=== PATIENT | female | born 1950 | race Caucasian/White ===

== ENCOUNTER 2016-10-26 11:35 | Inpatient (IN) ==
[2016-10-26] MEDS ORDERED: SODIUM CHLORIDE 0.9% 2,050 ML IV ONE (11:58)
[2016-10-26 12:04] LABS: Basophils # 0.1 10*3/uL (0.0-0.2); Basophils % 0.4 % (0.0-0.8); Eosinophils # 0.1 10*3/uL (0.0-0.87); Eosinophils % 0.9 % (0.00-10.9); Hematocrit 32.6 VOL% (35.7-47.0); Hemoglobin 11.6 GM/DL (12.0-16.0); Immature Granulocytes % 0.4 %; Immature Granulocytes Absolute 0.04 #; Lymphocytes # 2.1 10*3/uL (1.4-4.0); Lymphocytes % 18.7 % (21.3-54.2); Mean Corpuscular HGB Conc 35.6 GM/DL (32-36); Mean Corpuscular Hemoglobin 34 PG (27-34); Mean Corpuscular Volume 95.6 FL (87-102); Mean Platelet Volume 8.8 FL (9.6-12.0); Monocytes # 0.4 10*3/uL (0.11-0.8); Monocytes % 3.9 % (1.7-12.7); Neutrophils # 8.6 10*3/uL (1.4-7.4); Neutrophils % 75.7 % (38.7-73.9); Platelet Count 340 T/CUMM (130-400); Red Blood Count 3.41 MC/CUMM (3.8-5.5); Red Cell Distribution Width 12.1 % (9.3-17.3); White Blood Count 11.3 T/CUMM (4-12)
[2016-10-26 12:08] LABS: Apearance,Urine CLOUDY (Clear); Bacteria,Urine Many /HPF (Few); Bilirubin,Urine Small mg/dL (Negative); Blood, Urine Moderate mg/dL (Negative); Glucose,Urine (UA) Negative (Negative); Ketones,Urine 5 mg/dL (Negative); Nitrite,Urine Negative (Negative); Protein,Urine >=500 MG/DL; RBC,Urine 74 /HPF (0-4); Urine Specific Gravity 1.011 (1.001-1.035); Urine Urobilinogen < 2.0 EU/DL (0.2-1.0); WBC,Urine 204 /HPF (0-6)
[2016-10-26 12:09] LABS: Urine Color Dark yellow (Yellow)
[2016-10-26 12:27] LABS: Albumin 3.6 G/DL (3.4-5.0); Bilirubin,Total 0.7 MG/DL (0.2-1.0); Calcium 8.9 MG/DL (8.5-10.1); Osmolality,Calculated 296.4 MOS/KG (273-304); Potassium 3.4 MMOL/L (3.5-5.1); Total Protein 6.6 G/DL (6.4-8.3)
[2016-10-26] MEDS ORDERED: LEVOFLOXACIN INJ 100 ML IV ONE (12:31)
[2016-10-26 12:34] LABS: Lactic Acid 3.2 MMOL/L (0.4-2.0)
[2016-10-26] MEDS: LEVOFLOXACIN INJ 500 MG in PREMIX 1 EACH IV SCH (12:43)
[2016-10-26] MEDS ORDERED: ZALEPLON 5 MG CAPSULE PO PRN (13:43)
[2016-10-26] MEDS ORDERED: ONDANSETRON 4 MG/2 ML VIAL IV PRN (13:43)
[2016-10-26] MEDS ORDERED: ACETAMINOPHEN 325 MG TABLET PO PRN (13:43)
[2016-10-26] MEDS ORDERED: LACTULOSE 20 GM/30 ML UDCUP PO PRN (13:43)
[2016-10-26] MEDS ORDERED: DOCUSATE SODIUM 100 MG CAPSULE PO PRN (13:43)
--- NOTE | 2016-10-26 13:53 | Emergency Department Note ---
Maikol Goldberg Hilary, am scribing for, and in the presence of, Kalin Olsen MD 11:57. Raúl Goldberg Phillip K, MD, personally performed the services described in this documentation, ascribed by Elsa Lassiter in my presence, and it is both accurate and complete [id number] . Arrival - Arrival Chief Complaint: Altered Mental Status ED Nursing Triage Note: Brought in by EMS-sent from [facility] for further evaluation of confusion, weakness, and dehydration-unsure of onset. Patient was recently dx with a UTI, but was not put on antibiotics. Mode of Arrival: Stretcher Limitations: Altered Mental Status Source: Patient, RN Notes Reviewed - History of Present Illness HPI Narrative: Pt is a 66 y/o female brought into the ED via EMS from [facility] for further evaluation of confusion, weakness and dehydration. Patient was recently dx with a UTI, but was not put on antibiotics found today hypotensive and decreased mental status. Onset (ago): unknown Date of Last Menstrual Period: lennie Allergies/Adverse Reactions: Allergies Allergy/AdvReac Type Severity Reaction Status Date / Time cephalexin Allergy Unknown/Unable Verified 10/26/16 11:48 to obtain codeine Allergy Unknown/Unable Verified 10/26/16 11:48 to obtain Penicillins Allergy Unknown/Unable Verified 10/26/16 11:48 to obtain Review of System - Review of System ROS unobtainable: due to mental status 12 point system: reviewed and no additional remarkable complaints except as stated Medical,Surgical,& Family Hx - Medical History Cardio: History of: Hypertension Neurology: History of: Cerebrovascular Accident, Dementia Respiratory: History of: Respiratory Problems ("non-active TB") - Social History Smoking Status: Unknown if ever smoked Frequency of Alcohol Use: Unknown Type of Drug Use: Unknown Exam Vital Signs: Vital Signs Temperature 98.3 F 10/26/16 11:43 Pulse Rate 114 H 10/26/16 11:43 Respiratory Rate 18 10/26/16 12:00 Blood Pressure 71/35 10/26/16 11:43 O2 Sat by Pulse Oximetry 97 10/26/16 11:43 - General General appearance: alert, in no apparent distress - Head Head exam: Present: atraumatic, normocephalic - Eye Eye exam: Present: normal appearance, PERRL, EOMI - ENT ENT exam: Present: mucous membranes dry, TM's normal bilaterally - Neck Neck exam: Present: full ROM, trachea midline. Absent: tenderness - Chest Chest inspection: Present: symmetric chest wall rise. Absent: tenderness - Respiratory Respiratory exam: Present: normal lung sounds bilaterally. Absent: respiratory distress - Cardiovascular Cardiovascular exam: Present: regular rate, normal rhythm, normal heart sounds. Absent: murmur, rubs, gallop - Abdominal Exam Abdominal exam: Present: soft, normal bowel sounds. Absent: distention, tenderness - Extremities Exam Extremities exam: Present: full ROM. Absent: tenderness - Back Exam Back exam: Present: full ROM. Absent: tenderness - Neurological Exam Neurological exam: Present: alert, oriented X3, CN II-XII intact. Absent: motor sensory deficit - Psychiatric Psychiatric exam: Present: normal affect, normal mood - Skin Skin exam: Present: warm, dry, intact, normal color. Absent: rash Course Course Narrative: Patient discussed with the hospitalist. She was given 30 cc/kg of IV fluids with no improvement in her blood pressure. Hospitalist has seen the patient in the ED and hopefully will start some pressors. Results - Labs CBC & BMP: 10/26/16 11:47 10/26/16 11:47 Lab Results: I have reviewed the patients labs Labs: Laboratory Tests 10/26/16 10/26/16 11:47 11:47 WBC 11.3 RBC 3.41 L Hgb 11.6 L Hct 32.6 L MPV 8.8 L Neut % (Auto) 75.7 H Lymph % (Auto) 18.7 L Neut # (Auto) 8.6 H Urine Color Dark yellow Urine Appearance Cloudy Urine Bilirubin Small H Urine Urobilinogen < 2.0 H Urine Leukocytes Large H Laboratory Tests 10/26/16 11:47 Sodium 133 L Potassium 3.4 L Chloride 87 L Carbon Dioxide 33 H Anion Gap 16.4 H BUN 91 H Creatinine 2.20 H BUN/Creatinine Ratio 41.00 H Glucose 152 H Lactic Acid 3.2 H AST 40 H - EKG EKG results: interpreted by THIERRY, WNL, sinus rhythm - Diagnostic Findings Procedure: Chest x-ray: report reviewed by me (No infiltrate) Disposition Clinical Impression: Urosepsis, Sepsis, Urinary tract infection, Altered mental status Case discussed with: patient Disposition: Still a Patient Condition: Critical Additional Instructions: Admit to the hospitalist
[2016-10-26] MEDS ORDERED: SODIUM CHLORIDE 0.9% 1,000 ML IV SCH (14:00)
[2016-10-26 14:07] LABS: INR 1.1; PT Patient Result 11.2 SECS
--- NOTE | 2016-10-26 14:08 | XRay Report ---
Portable chest Date: 10/26/2016 Clinical history: Alteration conscious Comparison: None Technique: Portable AP sitting chest Findings: The heart is normal in size. Calcified granulomata/nodes with chronic scarring. Minimal atelectasis with accentuation of the pulmonary interstitium. Osteopenia with degenerative changes. Impression: Old healed granulomatous disease. Minimal atelectasis with findings which could be related to mild pneumonitis/edema/fibrosis. PROCEDURE INTERPRETED AT [facility] DEPARTMENT OF RADIOLOGY Final Report Signed by: Dr. Janene Sorto
--- NOTE | 2016-10-26 14:08 | EKG Report ---
Stationary ECG Study [facility] ER Test Date: 10/26/2016 1:26:35 PM Pat Name: NGUYEN THORNTON Department: Room: Gender: F [employer]: : 1950 Requested by: Kalin Glover Order Number: [id number] Reading MD: NISHA BYRD Intervals Inez Rate: 90 P: 64 OH: 171 QRS: -21 QRSD: 82 T: 51 QT: 383 QTc: 430 Interpretive Statements SINUS RHYTHM BORDERLINE LEFT AXIS DEVIATION LOW QRS VOLTAGE Electronically Signed On 10-29-16 15:25:36 CDT by NISHA BYRD [email or web address]
--- NOTE | 2016-10-26 14:13 | Hospitalist History & Physical ---
<Carson Stacy - Last Filed: 10/26/16 14:24> Assessment and Plan (1) Sepsis Status: Acute Assessment and plan: White count high normal at 11.3. Patient is hypotensive with a BP 71/35 on admission. Patient given a bolus of 2050 mL's normal saline. Patient started on Levaquin in the ED. Will continue Levaquin in the CCU. Sepsis workup has been ordered. Current Visit: Yes (2) Urinary tract infection Status: Acute Assessment and plan: Urinalysis reveals proteinuria and large leukocytes. Patient started on Levaquin and ED. Will continue in CCU. Current Visit: Yes (3) Altered mental status Status: Acute Assessment and plan: Patient has a decreased level consciousness and marked confusion. Onset unknown. Patient had a remote history of CVA which could be related. Current Visit: Yes (4) Remote history of stroke Status: Acute Current Visit: Yes History of Present Illness Chief complaint: UTI, confusion, weakness History of present illness: Ms. Pichardo is a 66 year old female detention resident who was transferred to [facility] ED via EMS for further evaluation of confusion, weakness and UTI. According to detention records, the patient was recently diagnosed with UTI but not started on antibiotics. She was also hypotensive at the detention with systolic pressure of 98. On arrival in the ED, the patient was found to be hypotensive with blood pressure 71/35. Patient was awake yet her communication was unintelligible mumbling. Unable to obtain a sufficient history from the patient due to decreased mental status. Chest x-ray showed minimal atelectasis with findings which could be related to mild pneumonitis or edema. Lab work revealed WBC 11.3 hemoglobin 11.6 hematocrit 32.6 sodium 133 potassium 3.4 BUN 91 creatinine 2.20 glucose 152. Urinalysis shows proteinuria greater than 500 mg/dL with large leukocytes. Blood culture and urine culture pending. Case been discussed with Dr. Olsen and Dr. Zuniga. Patient will be admitted through the hospital medicine service to the CCU for further monitoring and treatment. Patient is a full code. Home Medications Medication Instructions Recorded Confirmed Type ARIPiprazole [Aripiprazole] 20 mg PO 0900 10/26/16 10/26/16 History Escitalopram Oxalate 10 mg PO 0900 10/26/16 10/26/16 History Ibuprofen [Ibuprofen] 800 mg PO Q8H PRN 10/26/16 10/26/16 History Lisinopril/Hctz 20-12.5 [Prinzide 1 tablet PO 0900 10/26/16 10/26/16 History 20-12.5] Magnesium Hydroxide [Milk of 30 ml PO Q4H PRN 10/26/16 10/26/16 History Magnesia] Magnesium Oxide 500 mg PO BID@0900,1700 10/26/16 10/26/16 History Menthol/Zinc Oxide Oint 1 applic TOP QID PRN 10/26/16 10/26/16 History [Calmoseptine Oint] Methocarbamol Tab [Robaxin Tab] 500 mg PO TID 10/26/16 10/26/16 History Multivitamin (Centrum) [Centrum 1 tablet PO 0900 10/26/16 10/26/16 History Tab] Oxybutynin Xl [Ditropan Xl] 5 mg PO BID@0900,1700 10/26/16 10/26/16 History QUEtiapine [SEROquel] 25 mg PO 0900 10/26/16 10/26/16 History QUEtiapine [SEROquel] 100 mg PO BEDTIME 10/26/16 10/26/16 History clonazePAM [Clonazepam] 0.5 mg PO BID PRN 10/26/16 10/26/16 History dimenhyDRINATE [Dramamine Chew Tab] 50 mg PO Q4H PRN 10/26/16 10/26/16 History rifAMPin [Rifampin] 600 mg PO 0900 10/26/16 10/26/16 History Allergies Allergy/AdvReac Type Severity Reaction Status Date / Time cephalexin Allergy Unknown/Unable Verified 10/26/16 11:48 to obtain codeine Allergy Unknown/Unable Verified 10/26/16 11:48 to obtain Penicillins Allergy Unknown/Unable Verified 10/26/16 11:48 to obtain Medical,Surgical,& Family Hx - Medical History Cardio: History of: Hypertension Neurology: History of: Cerebrovascular Accident, Dementia Respiratory: History of: Respiratory Problems ("non-active TB") - Family History Family History: Reports;: Family Hypertension - Social History Smoking Status: Unknown if ever smoked Frequency of Alcohol Use: Unknown Type of Drug Use: Unknown Marital Status: Single Lives With:: [facility] Functional capacity: bed bound ROS unobtainable: due to mental status Exam - Constitutional Vitals: Period Temp Pulse Resp BP Sys/Santos Pulse Ox Last 24 Hr 98.3 F-98.3 F 114-114 16-18 71-71/35-35 97 General appearance: normal weight, disheveled - Head Head exam: Present: normal inspection, normocephalic, atraumatic. Absent: abrasion, laceration - Eye Eye exam: Present: EOMI. Absent: nystagmus, scleral icterus Pupils: Present: NICCI. Absent: fixed - ENT ENT exam: Present: normal exam, normal external ear exam - Neck Neck exam: Present: normal inspection. Absent: lymphadenopathy, tenderness, thyromegaly - Respiratory Respiratory exam: Present: decreased breath sounds, rales. Absent: chest wall tenderness, wheezes - Cardiovascular Cardiovascular exam: Present: tachycardia. Absent: carotid bruit, gallop - GI/Abdominal GI/Abdominal exam: Present: normal bowel sounds, soft. Absent: hernia, mass, tenderness - Extremities Exam Extremities exam: Present: normal inspection, normal capillary refill, full ROM. Absent: edema - Neurological Exam Neurological exam: Present: altered - Skin Skin exam: Present: normal color, warm, dry. Absent: cyanosis, erythema Results - Labs CBC & BMP: 10/26/16 11:47 10/26/16 11:47 Lab Results: I have reviewed the past 24 hour labs - EKG EKG results: interpreted by ERMD - Diagnostic Findings Procedure: Chest x-ray: image reviewed by me, report reviewed by me <Sarah Zuniga - Last Filed: 10/26/16 15:06> Assessment and Plan (1) Septic shock Status: Acute Assessment and plan: HL fluid, volume overload, levaquin, blood cx Current Visit: Yes (2) Urinary tract infection Status: Acute Assessment and plan: levaquin IV Current Visit: Yes (3) Altered mental status Status: Acute Assessment and plan: ct of head when they can hold still Current Visit: Yes (4) Remote history of stroke Status: Acute Assessment and plan: not on asa and plavix Current Visit: Yes (5) Hypokalemia Status: Acute Assessment and plan: potassium replacement Current Visit: Yes (6) Acute on chronic renal failure Status: Acute Assessment and plan: renal us, HL fluids due to volume overload Current Visit: Yes History of Present Illness Chief complaint: ams History of present illness: Ms. Pichardo is a 66 year old female seen and examined. Patient grunting the entire times, with pelvic thrusting. Hypotension, but had diffuse crackles due to volume overload. will use levaphed Medical,Surgical,& Family Hx - Surgical History Additional Surgical History: unable to obtain due to ams - Social History Smoking Status: Former smoker Exam - Constitutional Vitals: Period Temp Pulse Resp BP Sys/Santos Pulse Ox Last 24 Hr 98.3 F-98.3 F 114-114 16-18 71-71/35-35 97 General appearance: mild distress - Psychiatric Psychiatric exam: Present: agitated, anxious Results - Labs CBC & BMP: 10/26/16 11:47 10/26/16 11:47 - EKG EKG shows: sinus rhythm (no st changes ) - Diagnostic Findings Procedure: Chest x-ray: report reviewed by me (pneumonia pul edema )
[2016-10-26 14:18] LABS: Alanine Aminotransferase 44 U/L (13-56); Albumin 3.5 G/DL (3.4-5.0); Alkaline Phosphatase 97 U/L (45-117); Amylase 89 U/L (25-115); Aspartate Amino Transferase 43 U/L (0-37); Bilirubin,Indirect 0.3 MG/DL (0.0-1.0); Calcium 8.9 MG/DL (8.5-10.1); Total Protein 6.7 G/DL (6.4-8.3); Troponin I Only < 0.015 NG/ML (0.00-0.045)
[2016-10-26 14:27] LABS: ABG Base Excess 4.7 MMOL/L (-2.5-2.5); ABG HCO3 28.6 MMOL/L (20-26); ABG Oxygen Saturation 95.7 % (95-100); ABG PCO2 35.4 MM HG (35-48); ABG PH 7.503 (7.35-7.45); ABG PO2 76.8 MM HG (80-95); ABG TCO2 25.2 MMOL/L (23-27); Allen Test Positive; Pt O2 Delivery Device Room Air
[2016-10-26] MEDS ORDERED: ALBUTEROL 2.5 MG/3 ML NEB RESP TX PRN (14:30)
[2016-10-26] MEDS ORDERED: NOREPINEPHRINE 4 MG/4 ML VIAL IV ONE (14:41)
[2016-10-26] MEDS: NOREPINEPHRINE 8 MG in SODIUM CHLORIDE 0.9% 242 ML IV SCH (15:00)
[2016-10-26] MEDS: SODIUM CHLORIDE 0.9% 1,000 ML IV SCH (15:03)
[2016-10-26] MEDS ORDERED: ENOXAPARIN 30 MG/0.3 ML SYRINGE SUBCUT SCH (16:00)
[2016-10-26] MEDS: ARIPiprazole 10 MG TABLET PO SCH (17:31)
[2016-10-26] MEDS: PANTOPRAZOLE 40 MG VIAL IV SCH (17:31)
[2016-10-26] MEDS: QUEtiapine 100 MG TABLET PO SCH (21:25)
[2016-10-27] MEDS: NOREPINEPHRINE 8 MG in SODIUM CHLORIDE 0.9% 242 ML IV SCH ×2 (00:38→15:12)
[2016-10-27 07:07] LABS: Basophils % 0.5 % (0.0-0.8); Eosinophils # 0.1 10*3/uL (0.0-0.87); Eosinophils % 0.7 % (0.00-10.9); Hematocrit 30.8 VOL% (35.7-47.0); Hemoglobin 11.1 GM/DL (12.0-16.0); Immature Granulocytes % 0.4 %; Immature Granulocytes Absolute 0.03 #; Lymphocytes # 1.7 10*3/uL (1.4-4.0); Lymphocytes % 23.3 % (21.3-54.2); Mean Corpuscular Hemoglobin 34 PG (27-34); Mean Corpuscular Volume 94.5 FL (87-102); Mean Platelet Volume 8.9 FL (9.6-12.0); Monocytes # 0.5 10*3/uL (0.11-0.8); NRBC # 0.07 10*3/uL; Neutrophils # 5.1 10*3/uL (1.4-7.4); Neutrophils % 68.1 % (38.7-73.9); Platelet Count 300 T/CUMM (130-400); Red Blood Count 3.26 MC/CUMM (3.8-5.5); Red Cell Distribution Width 12.1 % (9.3-17.3); White Blood Count 7.5 T/CUMM (4-12)
[2016-10-27 07:26] LABS: Calcium 8.3 MG/DL (8.5-10.1); Osmolality,Calculated 301.8 MOS/KG (273-304); Potassium 3.4 MMOL/L (3.5-5.1)
[2016-10-27] MEDS: ESCITALOPRAM 10 MG TABLET PO SCH (08:37)
[2016-10-27] MEDS: ARIPiprazole 10 MG TABLET PO SCH (08:37)
[2016-10-27] MEDS: QUEtiapine 25 MG TABLET PO SCH (08:39)
[2016-10-27] MEDS ORDERED: PANTOPRAZOLE 40 MG TABLET PO SCH (09:00)
[2016-10-27] MEDS: LEVOFLOXACIN INJ 500 MG in PREMIX 1 EACH IV SCH (11:55)
[2016-10-27] MEDS: SODIUM CHLORIDE 0.9% 1,000 ML IV SCH (15:12)
[2016-10-27] MEDS: DESITIN 4OZ/NYSTATIN 15 GRAM MIXTURE PASTE TOP SCH ×2 (15:39→21:20)
[2016-10-27] MEDS: PANTOPRAZOLE 40 MG VIAL IV SCH (15:41)
[2016-10-27] MEDS: ENOXAPARIN 40 MG/0.4 ML SYRINGE SUBCUT SCH (16:04)
--- NOTE | 2016-10-27 16:54 | Hospitalist Progress Note ---
Assessment and Plan (1) Septic shock Status: Acute Assessment and plan: Continue Levaquin, hypotension has resolved. Current Visit: Yes (2) Urinary tract infection Status: Acute Assessment and plan: levaquin IV, urine culture pending Current Visit: Yes (3) Altered mental status Status: Acute Assessment and plan: EEG was read by Dr. Ambrose as negative. Current Visit: Yes (4) Remote history of stroke Status: Acute Assessment and plan: not on asa and plavix Current Visit: Yes (5) Hypokalemia Status: Acute Assessment and plan: potassium replacement and recheck in a.m. Current Visit: Yes (6) Acute on chronic renal failure Status: Acute Assessment and plan: renal us, restart low dose of IVF Current Visit: Yes Hospitalist: Subjective Interval history: Patient was seen by speech and they recommended a pured diet. Patient was seen by Dr. Ambrose and the EEG does not show any seizure activity. Patient still making these unusual grunts and noises. Patient has some breakdown on her bottom and we have ordered but pays for that. Patient is not requiring pressors but I want to leave her in the ICU overnight. Exam - Constitutional Vitals: Period Temp Pulse Resp BP Sys/Santos Pulse Ox Last 24 Hr 97.9 F-99.2 F 66-104 10-28 86-129/45-73 92-99 Exam: Heart Rate-[tachycardic] Lungs-[CTAB] GI-[+bs soft, NT] Ext-[no edema] Neuro [Motor 5/5], [alert and oriented times 1] psych [normal mood and affect] General [mild acute distress] Results - Labs CBC & BMP: 10/27/16 06:43 10/27/16 06:43 Lab Results: I have reviewed the past 24 hour labs Labs: Stool for occult blood is negative 3. Urine culture pending, blood cultures negative no growth
--- NOTE | 2016-10-27 17:49 | CT Report ---
History: Altered mental status Date: 10/27/2016 Study: CT head without contrast Comparison exam: August 17, [address] sections were obtained through the head without IV contrast. This CT exam was performed using one or more the following dose reduction techniques: Automated exposure control, adjustment of the MA and/or KV according to patient size, or use of iterative reconstruction technique. The ventricles are midline in position without evidence of hydrocephalus. There is mild cerebral atrophy. There is a moderate amount of ill-defined low density in the periventricular and deep white matter without mass effect compatible with changes of small vessel disease as on the comparison study. There is chronic lacunar infarction in the head of left caudate nucleus and anterior limb left internal capsule. Chronic lacunar infarction is also noted in the right putamen. There is no mass or parenchymal hemorrhage. There is no gross CT evidence of acute cortical stroke. There is no acute extra-axial hematoma. There is no acute abnormality of the calvarium. There is moderate distal carotid artery calcic aeration bilaterally. Impression: Chronic ischemic changes. No definite acute intracranial process PROCEDURE INTERPRETED AT [facility] DEPARTMENT OF RADIOLOGY Final Report Signed by: Dr. Yun Montoya
--- NOTE | 2016-10-27 18:35 | Electroencephalogram ---
HISTORY: A 66-year-old female with a history of change in mental status. INTRODUCTION: A digital EEG was performed using the standard 10-20 system of electrode placement wit h one-channel of EKG monitoring. Photic stimulation is performed. DESCRIPTION OF RECORD: The background is very interruptedly disorganized consists of 6 to 7 hertz mo derate amplitude bilaterally symmetrical rhythm. Photic stimulation elicit a driving response slower flash frequencies. There are no focal, sharp wave, spike, or wave activity seen. Heart rate 84 beats per minute. IMPRESSION: ABNORMAL EEG DUE TO GENERALIZED SLOWING. CLINICAL CORRELATION: This record is supportive of [id number] encephalopathy, which could be secondary to postictal state, post hypoxic state, metabolic disorder, diffuse PATHOLOGY LABORATORY AIDE insult, or increas ed intracranial pressure. No epileptiform/seizure activity seen. Clinical correlation suggested.
[2016-10-27] MEDS: POTASSIUM CHLORIDE INJ 40 MEQ in SODIUM CHLORIDE 0.45% 1,000 ML IV SCH (20:51)
[2016-10-27] MEDS: QUEtiapine 100 MG TABLET PO SCH (21:18)
[2016-10-28 04:28] LABS: Basophils % 0.3 % (0.0-0.8); Eosinophils # 0.1 10*3/uL (0.0-0.87); Eosinophils % 0.8 % (0.00-10.9); Hemoglobin 9.7 GM/DL (12.0-16.0); Immature Granulocytes % 0.3 %; Immature Granulocytes Absolute 0.02 #; Lymphocytes # 1.6 10*3/uL (1.4-4.0); Lymphocytes % 27.5 % (21.3-54.2); Mean Corpuscular HGB Conc 34.6 GM/DL (32-36); Mean Corpuscular Hemoglobin 33 PG (27-34); Mean Corpuscular Volume 96.2 FL (87-102); Mean Platelet Volume 8.3 FL (9.6-12.0); Monocytes # 0.4 10*3/uL (0.11-0.8); Monocytes % 6.4 % (1.7-12.7); Neutrophils # 3.9 10*3/uL (1.4-7.4); Neutrophils % 64.7 % (38.7-73.9); Platelet Count 259 T/CUMM (130-400); Red Blood Count 2.91 MC/CUMM (3.8-5.5); Red Cell Distribution Width 12.1 % (9.3-17.3)
[2016-10-28] MEDS: POTASSIUM CHLORIDE INJ 40 MEQ in SODIUM CHLORIDE 0.45% 1,000 ML IV SCH ×3 (04:54→13:24)
[2016-10-28 04:55] LABS: Calcium 8.7 MG/DL (8.5-10.1); Osmolality,Calculated 299.6 MOS/KG (273-304); Potassium 3.3 MMOL/L (3.5-5.1)
[2016-10-28] MEDS: ESCITALOPRAM 10 MG TABLET PO SCH (09:26)
[2016-10-28] MEDS: ARIPiprazole 10 MG TABLET PO SCH (09:26)
[2016-10-28] MEDS: QUEtiapine 25 MG TABLET PO SCH ×2 (09:26→15:04)
[2016-10-28] MEDS: DESITIN 4OZ/NYSTATIN 15 GRAM MIXTURE PASTE TOP SCH ×2 (11:41→22:14)
[2016-10-28] MEDS: LEVOFLOXACIN INJ 500 MG in PREMIX 1 EACH IV SCH (13:25)
[2016-10-28] MEDS ORDERED: LORazepam 2 MG/1 ML VIAL IV PRN (13:52)
--- NOTE | 2016-10-28 13:54 | Hospitalist Progress Note ---
Assessment and Plan (1) Septic shock Status: Acute Assessment and plan: Blood cultures 2 negative no growth, urine culture growing gram-positive cocci , will stop Levaquin as it will not be sensitive. Start vancomycin IV Current Visit: Yes (2) Urinary tract infection Status: Acute Assessment and plan: Urine culture growing gram-positive cocci, will change vancomycin. Current Visit: Yes (3) Altered mental status Status: Acute Assessment and plan: EEG shows no evidence of seizure activity but severe encephalopathy, head CT nothing acute, Current Visit: Yes (4) Remote history of stroke Status: Acute Assessment and plan: asa 81 mg daily Current Visit: Yes (5) Hypokalemia Status: Acute Assessment and plan: potassium replacement and recheck in a.m. Current Visit: Yes (6) Acute on chronic renal failure Status: Acute Assessment and plan: renal us pending, cont ivf Current Visit: Yes Hospitalist: Subjective Interval history: Patient continues to make these grunting noises. She does not say anything to make sense to me. She is eating okay. Nursing reports that she can be rather vulgar. Son says she has been this way for approximately a month. Patient is hardly drink or eat anything for the last [address] a Keofed and start her on tube feedings per Exam - Constitutional Vitals: Period Temp Pulse Resp BP Sys/Santos Pulse Ox Last 24 Hr 97.5 F-98.1 F 88-102 11-20 108-152/59-94 95-100 Exam: Heart Rate-[tachycardic] Lungs-[CTAB] GI-[+bs soft, NT] Ext-[no edema] Neuro [Motor 5/5], [alert and oriented times 1] psych [agitated mood and affect] General no acute distress] Results - Labs CBC & BMP: 10/28/16 04:16 10/28/16 04:16 Lab Results: I have reviewed the past 24 hour labs Labs: Blood cultures 2 negative, urine culture growing gram-positive cocci. - Diagnostic Findings Procedure: CT: report reviewed by me (Head CT chronic ischemic changes nothing acute.), Ultrasound: report reviewed by me (Renal ultrasound done results pending), X-ray: report reviewed by me (EEG shows moderate to severe encephalopathy. No seizure activity)
[2016-10-28] MEDS ORDERED: risperiDONE 1 MG TABLET PO SCH (14:00)
[2016-10-28] MEDS ORDERED: OXYMETAZOLINE 0.05% NASAL SPRAY 15 ML BOTTLE BOTH NARES PRN (14:00)
[2016-10-28] MEDS ORDERED: GLUCAGON 1 MG VIAL IM PRN (14:13)
[2016-10-28] MEDS ORDERED: DEXTROSE 50% 25 GM/50 ML VIAL IV PRN (14:13)
[2016-10-28] MEDS: ENOXAPARIN 40 MG/0.4 ML SYRINGE SUBCUT SCH (15:04)
[2016-10-28] MEDS: PANTOPRAZOLE 40 MG VIAL IV SCH (15:04)
[2016-10-28] MEDS: VANCOMYCIN INJ 750 MG in SODIUM CHLORIDE 0.9% 250 ML IV SCH (15:31)
[2016-10-28] MEDS: INSULIN REGULAR 100 UNIT/ML SUBCUT SCH (18:00)
--- NOTE | 2016-10-28 18:26 | XRay Report ---
History: Feeding tube placement Date: 10/28/2016 Study: Chest x-ray single view portable Comparison exam: October 26, 2016 The feeding tube tip overlies the distal stomach body level, satisfactory for gastric level feeding. The cardiomediastinal silhouette and bony vasculature are unremarkable. The lungs are grossly clear for shallow breath where seen. There is no gross pleural effusion. The cardiomediastinal silhouette is unchanged. The pulmonary vasculature is not engorged. The osseous structures are similar. Impression: The feeding tube tip is at the distal stomach body level PROCEDURE INTERPRETED AT [facility] DEPARTMENT OF RADIOLOGY Final Report Signed by: Dr. Yun Montoya
--- NOTE | 2016-10-28 20:04 | Ultrasound Report ---
History: Renal failure Date: 10/28/2016 Study: Bilateral renal ultrasound Comparison exam: No previous Real-time ultrasound images are captured and archived. The right kidney measures 10.3 x 3.4 x 4.4 cm maximum dimensions; the left kidney measures 9.9 x 6.0 x 5.0 cm. The renal parenchyma is slightly hyperechoic to the hepatic parenchyma compatible with some diffuse medical renal parenchymal disease. The renal parenchyma is still hypoechoic to the renal sinus fat. There is no hydronephrosis. There are 2 areas of increased echogenicity with posterior acoustic shadowing suggesting calcifications and potential nonobstructing nephrolithiasis in the right kidney. There is a 14 x 16 x 12 mm cyst in the mid right kidney which is grossly simple. There is no obvious solid renal mass. Impression: No evidence of hydronephrosis. Medical renal parenchymal disease. Potential nonobstructing right nephrolithiasis PROCEDURE INTERPRETED AT [facility] DEPARTMENT OF RADIOLOGY Final Report Signed by: Dr. Yun Montoya
[2016-10-28] MEDS: QUEtiapine 100 MG TABLET PO SCH (21:43)
[2016-10-29] MEDS: INSULIN REGULAR 100 UNIT/ML SUBCUT SCH ×4 (01:14→17:17)
[2016-10-29] MEDS: POTASSIUM CHLORIDE INJ 40 MEQ in SODIUM CHLORIDE 0.45% 1,000 ML IV SCH ×3 (01:15→20:27)
[2016-10-29] MEDS: VANCOMYCIN INJ 750 MG in SODIUM CHLORIDE 0.9% 250 ML IV SCH ×2 (05:19→16:03)
[2016-10-29 05:53] LABS: Basophils % 0.5 % (0.0-0.8); Eosinophils # 0.1 10*3/uL (0.0-0.87); Eosinophils % 1.8 % (0.00-10.9); Hematocrit 25.8 VOL% (35.7-47.0); Hemoglobin 8.9 GM/DL (12.0-16.0); Immature Granulocytes % 0.5 %; Immature Granulocytes Absolute 0.03 #; Lymphocytes # 2.3 10*3/uL (1.4-4.0); Lymphocytes % 33.9 % (21.3-54.2); Mean Corpuscular HGB Conc 34.5 GM/DL (32-36); Mean Corpuscular Hemoglobin 34 PG (27-34); Mean Corpuscular Volume 98.9 FL (87-102); Mean Platelet Volume 8.5 FL (9.6-12.0); Monocytes # 0.5 10*3/uL (0.11-0.8); Monocytes % 6.8 % (1.7-12.7); Neutrophils # 3.8 10*3/uL (1.4-7.4); Neutrophils % 56.5 % (38.7-73.9); Platelet Count 228 T/CUMM (130-400); Red Blood Count 2.61 MC/CUMM (3.8-5.5); Red Cell Distribution Width 12.3 % (9.3-17.3); White Blood Count 6.7 T/CUMM (4-12)
[2016-10-29 06:19] LABS: Calcium 8.3 MG/DL (8.5-10.1); Osmolality,Calculated 296.6 MOS/KG (273-304); Potassium 4.3 MMOL/L (3.5-5.1)
[2016-10-29] MEDS: ESCITALOPRAM 10 MG TABLET PO SCH (08:28)
[2016-10-29] MEDS: DESITIN 4OZ/NYSTATIN 15 GRAM MIXTURE PASTE TOP SCH ×2 (08:28→20:27)
[2016-10-29] MEDS: QUEtiapine 25 MG TABLET PO SCH (08:28)
[2016-10-29] MEDS: ARIPiprazole 10 MG TABLET PO SCH (08:28)
[2016-10-29] MEDS ORDERED: ASPIRIN CHEW 81 MG TABLET PO SCH (09:00)
--- NOTE | 2016-10-29 12:07 | Hospitalist Progress Note ---
Assessment and Plan (1) Septic shock Status: Acute Assessment and plan: Blood cultures 2 negative no growth, urine culture growing strep mutan sensitive to vancomycin IV Current Visit: Yes (2) Urinary tract infection Status: Acute Assessment and plan: Urine culture strept mutan sensitive to vancomycin. Current Visit: Yes (3) Altered mental status Status: Acute Assessment and plan: EEG shows no evidence of seizure activity but severe encephalopathy, head CT nothing acute, Current Visit: Yes (4) Remote history of stroke Status: Acute Assessment and plan: asa 81 mg daily Current Visit: Yes (5) Acute on chronic renal failure Status: Acute Assessment and plan: Improving with IV fluids Current Visit: Yes (6) Anemia Status: Acute Assessment and plan: Patient stool for occult blood were negative but nurse reports that the stool today was grossly positive. Consult Dr. Patino as we will will need a PEG tube on her. Current Visit: Yes (7) Alzheimer's dementia with behavioral disturbance Status: Acute Assessment and plan: Patient has severe advanced dementia and along with her bipolar makes her poorly functional. Family would like a PEG tube Current Visit: Yes (8) Bipolar disorder with psychotic features Status: Acute Assessment and plan: Continue Seroquel and Abilify. Current Visit: Yes Hospitalist: Subjective Interval history: Spoke with son today. Patient does have advanced dementia as I suspected. Patient is more calm today now that she is on her psych meds but is still unable to talk to us. She is to be sleeping most of today. She probably needs that addressed as she has not slept in several days. Even though her quality of life is poor and most likely will be in a long term the rest of her life her son is not ready for hospice. He would like a feeding tube placed. She still has some blood in her stools but it was from her really severe nosebleed which has now resolved. We will consult Dr. Pastor. The nurse had told me despite her negative occults she has a grossly positive stool for blood today. Exam - Constitutional Vitals: Period Temp Pulse Resp BP Sys/Santos Pulse Ox Last 24 Hr 98.4 F-99.7 F 91-106 16-20 94-144/58-94 92-99 Exam: Heart Rate-[tachycardic] Lungs-[CTAB] GI-[+bs soft, NT] Ext-[no edema] Neuro patient sleeping unable to evaluate psych patient is sleeping unable to evaluate General no acute distress] Results - Labs CBC & BMP: 10/29/16 05:35 10/29/16 05:35 Lab Results: I have reviewed the past 24 hour labs Labs: Blood cultures 2 negative, urine culture growing strep mutation sensitive to Rocephin. Stools negative for blood.
--- NOTE | 2016-10-29 12:19 | Gastrointestinal Consult Note ---
Assessment and Plan (1) Anemia Status: Acute Assessment and plan: Patient does have a decreased hematocrit to 25.8% with a hemoglobin of 8.9 and MCV of 98.9. Will check for B12 and folate deficiency as the former can certainly produce dementia. She has responded well to the feedings when she can get these. I do not believe with her current mental status whether she would be able to tolerate pured diet at all. The patient's son states that she really has not been eating much at all over the last 2 days and her symptoms have been going on for the last 1 month. In an effort to get the nasal feeding tube out I agree the PEG tube could certainly be of benefit to this patient. Current Visit: Yes (2) Malnutrition Status: Acute Assessment and plan: She does generally look malnourished. She did have some electrolyte abnormalities initially including a low potassium and an high chloride anion gap. Tube feeding is already been initiated, we are watching for refeeding phenomenon. Current Visit: Yes (3) Altered mental status Status: Acute Assessment and plan: The patient's son states that she has been having these waxing and waning changes over the last 1 month, she has garbled speech and is not able to follow commands routinely. I think that a feeding tube is ultimately going to be required for medication hydration needs. We will go ahead and plan on placing this on Sunday. Will check B12 and folate in the interim due to the patient's elevated MCV. Current Visit: Yes History of Present Illness Chief complaint: Anorexia, anemia, malnutrition, waxing and waning mental status History of present illness: Ms. Pichardo is a 66 year old female who has a history of weakness and urinary tract infection with confusion upon admission to the hospital. She initially had a blood pressure of 71/35 and has been bolused with over 2 L of normal saline. The patient has a remote history of CVA. She was evaluated by speech pathology earlier her admission on 10/27/16 and felt that she did not have any overt signs or symptoms with any consistency and a pured diet was recommended. The patient has not been able to eat well over the last 2 days. The patient's son states that she is had these mental status changes over the last 1 month or so. However, at this time, with her waxing and waning mental status, she is able to occasionally follow simple commands such as "give me a thumbs up" or answer questions within head nod or shake. She really cannot do any multitasking or answering of any complex questioning. She does not answer when asked about reflux or other GI issues. She does speak but her language is garbled to the point where it is incomprehensible. The patient has removed 1 of her Dobbhoff feeding tubes already with some bleeding into her mouth likely due to nasal trauma. She has another one placed now. She was admitted on and has not shown significant improvement despite use of antibiotics. She has a significant anemia with hematocrit of 25.8 after nasal bleeding, with a normal platelet count (228) and a normal white blood cell count at 6.7. She is currently getting her tube feeds at 55 mL/h and is tolerating this with low residuals. This is her goal rate. Her potassium is improved since her admission levels when these were down to 3.4 now up to 4.3. Stools are brown but are currently being guaiaced. She has hypoactive bowel sounds on physical exam. Surprisingly her BUN and creatinine are normal. Home Medications Medication Instructions Recorded Confirmed Type ARIPiprazole [Aripiprazole] 20 mg PO 0900 10/26/16 10/26/16 History Escitalopram Oxalate 10 mg PO 0900 10/26/16 10/26/16 History Ibuprofen [Ibuprofen] 800 mg PO Q8H PRN 10/26/16 10/26/16 History Lisinopril/Hctz 20-12.5 [Prinzide 1 tablet PO 0900 10/26/16 10/26/16 History 20-12.5] Magnesium Hydroxide [Milk of 30 ml PO Q4H PRN 10/26/16 10/26/16 History Magnesia] Magnesium Oxide 500 mg PO BID@0900,1700 10/26/16 10/26/16 History Menthol/Zinc Oxide Oint 1 applic TOP QID PRN 10/26/16 10/26/16 History [Calmoseptine Oint] Methocarbamol Tab [Robaxin Tab] 500 mg PO TID 10/26/16 10/26/16 History Multivitamin (Centrum) [Centrum 1 tablet PO 0900 10/26/16 10/26/16 History Tab] Oxybutynin Xl [Ditropan Xl] 5 mg PO BID@0900,1700 10/26/16 10/26/16 History QUEtiapine [SEROquel] 25 mg PO 0900 10/26/16 10/26/16 History QUEtiapine [SEROquel] 100 mg PO BEDTIME 10/26/16 10/26/16 History clonazePAM [Clonazepam] 0.5 mg PO BID PRN 10/26/16 10/26/16 History dimenhyDRINATE [Dramamine Chew Tab] 50 mg PO Q4H PRN 10/26/16 10/26/16 History rifAMPin [Rifampin] 600 mg PO 0900 10/26/16 10/26/16 History Allergies Allergy/AdvReac Type Severity Reaction Status Date / Time cephalexin Allergy Unknown/Unable Verified 10/26/16 11:48 to obtain codeine Allergy Unknown/Unable Verified 10/26/16 11:48 to obtain Penicillins Allergy Unknown/Unable Verified 10/26/16 11:48 to obtain Medical,Surgical,& Family Hx - Medical History Cardio: History of: Hypertension Neurology: History of: Cerebrovascular Accident, Dementia Respiratory: History of: Respiratory Problems ("non-active TB") - Family History Family History: Reports;: Family Hypertension - Social History Smoking Status: Never smoker Frequency of Alcohol Use: Unknown Type of Drug Use: Unknown ROS unobtainable: due to delirium Exam - Constitutional Vitals: Period Temp Pulse Resp BP Sys/Santos Pulse Ox Last 24 Hr 98.4 F-99.7 F 91-106 16-20 94-144/58-94 92-99 General appearance: mild distress - Head Head exam: Present: normocephalic, other (Dobbhoff feeding tube in place) - Eye Eye exam: Present: EOMI. Absent: conjunctival injection, scleral icterus Pupils: Present: NICCI - Respiratory Respiratory exam: Present: clear to auscultation bilaterally. Absent: rhonchi, stridor, wheezes - Cardiovascular Cardiovascular exam: Present: regular rate and rhythm. Absent: systolic murmur - GI/Abdominal GI/Abdominal exam: Present: normal bowel sounds, soft. Absent: distended, guarding, Sierra's sign - Extremities Exam Extremities exam: Present: normal inspection. Absent: edema - Back Exam Back exam: Absent: muscle spasm - Neurological Exam Neurological exam: Present: alert, altered (Easily confused with garbled speech. She seems to be able to move all extremities well.). Absent: motor sensory deficit - Psychiatric Psychiatric exam: Present: flat affect - Skin Skin exam: Present: warm Results - Labs CBC & BMP: 10/29/16 05:35 10/29/16 05:35
[2016-10-29] MEDS: PANTOPRAZOLE 40 MG VIAL IV SCH (16:03)
[2016-10-29] MEDS: QUEtiapine 100 MG TABLET PO SCH (20:27)
[2016-10-30] MEDS: INSULIN REGULAR 100 UNIT/ML SUBCUT SCH ×4 (00:08→18:04)
[2016-10-30] MEDS: VANCOMYCIN INJ 750 MG in SODIUM CHLORIDE 0.9% 250 ML IV SCH (04:09)
[2016-10-30] MEDS: POTASSIUM CHLORIDE INJ 40 MEQ in SODIUM CHLORIDE 0.45% 1,000 ML IV SCH ×3 (04:10→14:43)
[2016-10-30 06:35] LABS: Basophils % 0.5 % (0.0-0.8); Eosinophils # 0.2 10*3/uL (0.0-0.87); Eosinophils % 3.6 % (0.00-10.9); Hematocrit 30.2 VOL% (35.7-47.0); Hemoglobin 9.6 GM/DL (12.0-16.0); Immature Granulocytes % 0.5 %; Immature Granulocytes Absolute 0.03 #; Lymphocytes # 2.4 10*3/uL (1.4-4.0); Lymphocytes % 40.6 % (21.3-54.2); Mean Corpuscular HGB Conc 31.8 GM/DL (32-36); Mean Corpuscular Hemoglobin 33 PG (27-34); Mean Corpuscular Volume 104.1 FL (87-102); Mean Platelet Volume 9.1 FL (9.6-12.0); Monocytes # 0.3 10*3/uL (0.11-0.8); Monocytes % 4.8 % (1.7-12.7); Neutrophils # 2.9 10*3/uL (1.4-7.4); Platelet Count 237 T/CUMM (130-400); Red Cell Distribution Width 12.3 % (9.3-17.3); White Blood Count 5.9 T/CUMM (4-12)
[2016-10-30 07:03] LABS: Calcium 7.9 MG/DL (8.5-10.1); Osmolality,Calculated 284.1 MOS/KG (273-304); Potassium 4.9 MMOL/L (3.5-5.1)
[2016-10-30 07:15] LABS: Folate 13.7 NG/ML (5.4-24.0)
[2016-10-30 07:19] LABS: Magnesium 2.2 MG/DL (1.8-2.4); Phosphorous 2.7 MG/DL (2.5-4.9); Prealbumin 10.6 MG/DL (20-40)
--- NOTE | 2016-10-30 08:31 | Hospitalist Progress Note ---
Assessment and Plan (1) Bipolar disorder with psychotic features Status: Acute Assessment and plan: Impression: 1. Bipolar disorder 2. Alzheimer's disease 3. Swallowing problems with malnutrition 4. Urinary tract infection Plan: PEG tube is scheduled for tomorrow. I have revised her antibiotics. Otherwise , continue current care. This note was completed using [employer] voice recognition software. There may be television installer helper errors as a result. Current Visit: Yes Hospitalist: Subjective Interval history: Follow-up bipolar psychosis, Alzheimer's disease, dysphagia, and urinary infection. Staff reports no new problems. The patient tells me that she would like to be left alone. She asked me who I was. PEG tube is apparently scheduled for in the morning. Currently, she is receiving feedings through a nasal tube. She is growing strep mutans in her urine, sensitive to all antibiotics. Exam - Constitutional Vitals: Period Temp Pulse Resp BP Sys/Santos Pulse Ox Last 24 Hr 97.2 F-99.1 F 72-95 17-22 98-116/54-62 92-97 Heart is regular with a soft systolic murmur no gallop. Chest is fairly clear with no rales or wheezes. Abdomen is soft with no mass or tenderness. She is awake and conversant with dysarthria Results - Labs CBC & BMP: 10/30/16 05:46 10/30/16 05:46 Lab Results: I have reviewed the past 24 hour labs
--- NOTE | 2016-10-30 08:38 | Gastrointestinal Progress Note ---
Assessment and Plan (1) Anemia Status: Acute Assessment and plan: Patient does have a decreased hematocrit to 25.8% with a hemoglobin of 8.9 and MCV of 98.9. Will check for B12 and folate deficiency as the former can certainly produce dementia. She has responded well to the feedings when she can get these. I do not believe with her current mental status whether she would be able to tolerate pured diet at all. The patient's son states that she really has not been eating much at all over the last 2 days and her symptoms have been going on for the last 1 month. In an effort to get the nasal feeding tube out I agree the PEG tube could certainly be of benefit to this patient. 10/30/16--B12 and folate are completely normal. The patient has been set up for PEG tube placement tomorrow. I do not feel that with her current mental status that she would have any significant intake. We will be performing upper endoscopy tomorrow both to see a cause for the anemia and to place the PEG tube as mentioned above. Current Visit: Yes (2) Malnutrition Status: Acute Assessment and plan: She does generally look malnourished. She did have some electrolyte abnormalities initially including a low potassium and an high chloride anion gap. Tube feeding is already been initiated, we are watching for refeeding phenomenon. 10/30/16--Patient is having mild diarrhea as result of her tube feeds that are running at 55 mL/h. we will continue to observe. The patient's potassium is slightly high, I am going to cut back on her IV fluid rate. Current Visit: Yes (3) Altered mental status Status: Acute Assessment and plan: The patient's son states that she has been having these waxing and waning changes over the last 1 month, she has garbled speech and is not able to follow commands routinely. I think that a feeding tube is ultimately going to be required for medication hydration needs. We will go ahead and plan on placing this on Sunday. Will check B12 and folate in the interim due to the patient's elevated MCV. 10/30/16--the patient's mental status appears slightly better. She is actually making statements although she does not answer questions or seem to be cognitively aware of much going on around her. It is unclear whether this is due to dementia, systemic illness, delirium, recent stroke, expressive aphasia or what is occurring at this point causing this mental status change. Current Visit: Yes Gastroenterology - PN: Subj Interval history: Patient states that she just wants to be left alone, this is the response to most questions asked her. She speaks this in a somewhat groggy tone. Exam (Progress Note) - Constitutional Vitals: Period Temp Pulse Resp BP Sys/Santos Pulse Ox Last 24 Hr 97.2 F-99.1 F 72-95 17-22 98-116/54-62 92-97 General appearance: no acute distress - Eye Eye exam: Present: EOMI Pupils: Present: NICCI - Respiratory Respiratory exam: Present: clear to auscultation bilaterally - Cardiovascular Cardiovascular exam: Present: regular rate and rhythm - GI/Abdominal GI/Abdominal exam: Present: normal bowel sounds, soft. Absent: distended, tenderness, rebound - Extremities Exam Extremities exam: Present: edema (Trace at the ankles) - Neurological Exam Neurological exam: Present: altered (Groggy, repeatedly states "I just want to be left alone") - Psychiatric Psychiatric exam: Present: flat affect. Absent: agitated, anxious - Skin Skin exam: Present: warm Results - Labs CBC & BMP: 10/30/16 05:46 10/30/16 05:46
[2016-10-30] MEDS: LEVOFLOXACIN 500 MG TABLET PO SCH (09:57)
[2016-10-30] MEDS: clonazePAM 0.5 MG TABLET PO PRN (09:57)
[2016-10-30] MEDS: ARIPiprazole 10 MG TABLET PO SCH (09:57)
[2016-10-30] MEDS: ESCITALOPRAM 10 MG TABLET PO SCH (09:57)
[2016-10-30] MEDS: QUEtiapine 25 MG TABLET PO SCH (09:57)
[2016-10-30] MEDS: DESITIN 4OZ/NYSTATIN 15 GRAM MIXTURE PASTE TOP SCH ×2 (09:58→22:07)
--- NOTE | 2016-10-30 12:07 | Neurology Consult Note ---
History of Present Illness History of present illness: Patient is unable to provide any history. History basically obtained from the chart. Ms. Pichardo is a 66 year right handed white lady, a intermediate resident who was transferred to [facility] via EMS for further evaluation of confusion, weakness and UTI. According to intermediate records, the patient was recently diagnosed with UTI but not started on antibiotics. She was also hypotensive at the intermediate with systolic pressure of 98. On arrival in the ED, the patient was found to be hypotensive with low blood pressure. Patient was awake yet her communication was unintelligible mumbling. Chest x-ray showed minimal atelectasis with findings which could be related to mild pneumonitis or edema. Urinalysis shows proteinuria greater than 500 mg/dL with large leukocytes. CT of the head revealed generalized white matter changes chronic in nature. Home Medications Medication Instructions Recorded Confirmed Type ARIPiprazole [Aripiprazole] 20 mg PO 0900 10/26/16 10/26/16 History Escitalopram Oxalate 10 mg PO 0900 10/26/16 10/26/16 History Ibuprofen [Ibuprofen] 800 mg PO Q8H PRN 10/26/16 10/26/16 History Lisinopril/Hctz 20-12.5 [Prinzide 1 tablet PO 0900 10/26/16 10/26/16 History 20-12.5] Magnesium Hydroxide [Milk of 30 ml PO Q4H PRN 10/26/16 10/26/16 History Magnesia] Magnesium Oxide 500 mg PO BID@0900,1700 10/26/16 10/26/16 History Menthol/Zinc Oxide Oint 1 applic TOP QID PRN 10/26/16 10/26/16 History [Calmoseptine Oint] Methocarbamol Tab [Robaxin Tab] 500 mg PO TID 10/26/16 10/26/16 History Multivitamin (Centrum) [Centrum 1 tablet PO 0900 10/26/16 10/26/16 History Tab] Oxybutynin Xl [Ditropan Xl] 5 mg PO BID@0900,1700 10/26/16 10/26/16 History QUEtiapine [SEROquel] 25 mg PO 0900 10/26/16 10/26/16 History QUEtiapine [SEROquel] 100 mg PO BEDTIME 10/26/16 10/26/16 History clonazePAM [Clonazepam] 0.5 mg PO BID PRN 10/26/16 10/26/16 History dimenhyDRINATE [Dramamine Chew Tab] 50 mg PO Q4H PRN 10/26/16 10/26/16 History rifAMPin [Rifampin] 600 mg PO 0900 10/26/16 10/26/16 History Allergies Allergy/AdvReac Type Severity Reaction Status Date / Time cephalexin Allergy Unknown/Unable Verified 10/26/16 11:48 to obtain codeine Allergy Unknown/Unable Verified 10/26/16 11:48 to obtain Penicillins Allergy Unknown/Unable Verified 10/26/16 11:48 to obtain ROS unobtainable: due to mental status, due to delirium Medical,Surgical,& Family Hx - Medical History Cardio: History of: Hypertension Neurology: History of: Cerebrovascular Accident, Dementia Respiratory: History of: Respiratory Problems ("non-active TB") - Family History Family History: Reports;: Family Hypertension - Social History Smoking Status: Never smoker Frequency of Alcohol Use: Unknown Type of Drug Use: Unknown Exam - Constitutional Vitals: Period Temp Pulse Resp BP Sys/Santos Pulse Ox Last 24 Hr 97.2 F-99.1 F 72-95 17-22 98-108/54-66 94-97 Exam: GENERAL: Patient is in no acute distress. NECK: Neck is supple. There is no JVD. No carotid bruits present. No thyroid masses. CVS: First and second heart sounds are normal. There is no S3 present. Regular rate and rhythm. RESPIRATORY: Lungs are clear to auscultation without any rales or rhonchi. ABDOMEN: Soft and non-tender. Bowel sounds are present. There is no hepatosplenomegaly. EXT: There is no palpable edema. Peripheral pulses are present. Skin: No rashes Central Nervous system: General: awake but disoriented Speech: Non-fluent Comprehension: Impaired Facial expressions: Normal Cranial Nerves: Pupils are equally reactive to light. Doll's head eye movements are positive. No facial asymmetry seen Motor: Bulk and Tone is normal. Strength cannot be assessed Sensory: Cannot be assessed Reflexes: 1+ and symmetrical Cerebellar function: Cannot be assessed Toes: Equivocal Gait: Cannot be assessed Results - Labs CBC & BMP: 10/30/16 05:46 10/30/16 05:46 Assessment and Plan (1) Delirium Status: Acute Assessment and plan: This is likely due to UTI and infection No evidence of a stroke or seizures. Current Visit: Yes (2) Alzheimer's dementia with behavioral disturbance Status: Acute Assessment and plan: Add Namenda 5 mg p.o. twice daily Thank you for the consult Current Visit: Yes
[2016-10-30] MEDS: PANTOPRAZOLE 40 MG VIAL IV SCH (14:30)
--- NOTE | 2016-10-30 17:21 | Electroencephalogram ---
HISTORY: A 66-year-old female with a history of severe mental status. INTRODUCTION: A digital EEG was performed using the standard 10/20 system of electrode placement wit h one channel of EKG monitoring. Photic stimulation was performed. DESCRIPTION OF RECORD: The background is very disorganized, consists of 6 to 7 hertz moderate amplit ude bilaterally symmetrical rhythm. Photic stimulation elicits driving response at slower flash freq uencies. There are no focal, sharp wave, spike or wave activity seen. This record is contaminated w ith muscles and movement artifacts. Heart rate is 90 beats per minute. IMPRESSION: ABNORMAL EEG DUE TO GENERALIZED SLOWING. CLINICAL CORRELATION: This record is supportive of moderately severe encephalopathy, which could be secondary to postictal state, posthypoxic state, metabolic disorder, diffuse MAINTENANCE OF WAY SUPERVISOR insult, or increased intracranial pressure. No epileptiform/seizure activity seen. Clinical correlation is suggested.
[2016-10-30] MEDS: MEMANTINE 5 MG TABLET PO SCH (22:07)
[2016-10-30] MEDS: QUEtiapine 100 MG TABLET PO SCH (22:07)
[2016-10-31] MEDS: INSULIN REGULAR 100 UNIT/ML SUBCUT SCH ×4 (00:02→17:49)
[2016-10-31] MEDS: POTASSIUM CHLORIDE INJ 40 MEQ in SODIUM CHLORIDE 0.45% 1,000 ML IV SCH (05:23)
[2016-10-31] MEDS ORDERED: PROPOFOL 200 MG/20 ML VIAL IV ONE (08:53)
[2016-10-31] MEDS ORDERED: LIDOCAINE 2% 5 ML VIAL ONE (08:53)
--- NOTE | 2016-10-31 09:09 | Operative Note ---
Date of procedure: 10/31/16 Pre-op diagnosis: Waxing and waning mental status/poor p.o. intake/malnutrition Post-op diagnosis: other (Mild pangastritis, diffuse, biopsied otherwise normal- appearing without hiatal hernia or duodenitis or esophagitis. Successful PEG tube placement) Procedure: PROCEDURE: Esophagogastroduodenoscopy (EGD) with percutaneous endoscopic gastrostomy (PEG) tube placement with cold biopsy for pathology REFERRING PHYSICIAN: Sarah Zuniga MD INDICATIONS: Altered mental status, malnutrition, anemia ENDOSCOPIST: Jose Pastor MD ENDOSCOPE: Olympus Video 100 System upper endoscope ASA CLASS: 4 EXAM: CV: Regular rate and rhythm respiratory: Clear to ascultation abdominal: Positive bowel sounds MEDICATION: As per Anesthesia nursing protocol, see their notes PROCEDURE: After discussion of the potential risks and benefits of upper endoscopy and PEG placement, the informed consent was obtained. The patient was then placed in the left lateral decubitus position where sedation was achieved as noted above. Esophageal intubation was performed without difficulty , and the endoscope was advanced through the esophagus, stomach and duodenum. A slow withdrawal was then performed with retroflexion in the stomach for careful inspection of the incisura angularis, fundus and cardia. The scope was then returned to a neutral position and withdrawn through the esophagus. The patient tolerated the procedure well and without complication. BIOPSIES: Obtained PHOTOGRAPHS: Gastric antrum/body FINDINGS: Hypopharynx and Larynx: Normal Esohagoscopy Upper and middle thirds: Normal Lower third Normal Esophogastric junctions: No evidence of erosion, or Clay's epithelium Gastroscopy: Cardia/Fundus: Mild pangastritis Body: Mild pangastritis without erosion here, biopsied Antrum and pylorus few small erosions noted here, biopsied for Helicobacter pylori Duodenoscopy: Bulb Normal Second and third portions: Normal PEG Kit/tube size: Cook 20 [place]i PEG tube placed without difficulty PEG Placement: After insufflation of the stomach with the prior procedure proper positioning was determined through transillumination and direct pressure with one to one transmission through the abdominal wall. The abdomen was sterilely prepped and draped, injected with 1% lidocaine and a 1 cm incision was cut in the external skin to accommodate the PEG tube. Using standard Ponsky "pull" technique, a catheter was inserted into the stomach (using a fluid filled syringe with back-suction to examine for interposed hollow organs) and a string was advanced into the stomach. This was snared through the scope, pulled through the mouth and tied to the PEG tube. The feeding tube was then pulled down into the stomach and out the abdominal wall, and a hub appropriately placed at the base to provide traction between internal hub and external skin. The tube was trimmed, dressed and a second look with the endoscope used to confirm position and function of the tube. The procedure was tolerated well and without complication. IMPRESSION: Mild pangastritis, diffuse, biopsied otherwise normal-appearing without hiatal hernia or duodenitis or esophagitis. Successful PEG tube placement RECOMMENDATIONS: Maintain head of bed at 30 degrees Flush the PEG tube with 30 cc of water or saline every 4 hours Obtain (if not done already) nutritional consult to determine optimal feeding rate, continuous vs. bolus, and any hydration requirements necessary. Meds may be crushed and flushed through PEG in 12 hours, followed by 10 ml of water, as per the patient's attending physcian. Feeding though the tube may start at 12 hours with an initial rate of 30 ml/ hour advancing by 10 ml's every four hours until goal rate achieved. Hold tube feeds for residuals greater than 100 ml, checked each shift. Abdominal binder to protect PEG tube at all times. Jose Pastor MD Copy to: Sarah Zuniga MD Anesthesia: MAC Surgeon / Physician: Jose Pastor Specimens: other (Gastric antrum/body) Condition: stable Disposition: post procedure unit (G.I. Suite) Results - Labs CBC & BMP: 10/30/16 05:46 10/30/16 05:46 Discharge Plan - Discharge Medications No Action Menthol/Zinc Oxide Oint [Calmoseptine Oint] 1 applic TOP QID PRN PRN Reason: Rash dimenhyDRINATE [Dramamine Chew Tab] 50 mg PO Q4H PRN PRN Reason: Nausea/Vomiting Ibuprofen [Ibuprofen] 800 mg PO Q8H PRN PRN Reason: Pain clonazePAM [Clonazepam] 0.5 mg PO BID PRN PRN Reason: Anxiety QUEtiapine [SEROquel] 100 mg PO BEDTIME QUEtiapine [SEROquel] 25 mg PO 0900 ARIPiprazole [Aripiprazole] 20 mg PO 0900 rifAMPin [Rifampin] 600 mg PO 0900 Methocarbamol Tab [Robaxin Tab] 500 mg PO TID Magnesium Oxide 500 mg PO BID@0900,1700 Lisinopril/Hctz 20-12.5 [Prinzide 20-12.5] 1 tablet PO 0900 Magnesium Hydroxide [Milk of Magnesia] 30 ml PO Q4H PRN PRN Reason: Constipation Escitalopram Oxalate 10 mg PO 0900 Oxybutynin Xl [Ditropan Xl] 5 mg PO BID@0900,1700 Multivitamin (Centrum) [Centrum Tab] 1 tablet PO 0900 - Follow Up or Referral - Forms/Instructions
--- NOTE | 2016-10-31 09:13 | Gastrointestinal Progress Note ---
Assessment and Plan (1) Anemia Status: Acute Assessment and plan: Patient does have a decreased hematocrit to 25.8% with a hemoglobin of 8.9 and MCV of 98.9. Will check for B12 and folate deficiency as the former can certainly produce dementia. She has responded well to the feedings when she can get these. I do not believe with her current mental status whether she would be able to tolerate pured diet at all. The patient's son states that she really has not been eating much at all over the last 2 days and her symptoms have been going on for the last 1 month. In an effort to get the nasal feeding tube out I agree the PEG tube could certainly be of benefit to this patient. 10/30/16--B12 and folate are completely normal. The patient has been set up for PEG tube placement tomorrow. I do not feel that with her current mental status that she would have any significant intake. We will be performing upper endoscopy tomorrow both to see a cause for the anemia and to place the PEG tube as mentioned above. 10/31/16--Mild pangastritis, diffuse, biopsied otherwise normal-appearing without hiatal hernia or duodenitis or esophagitis. Successful PEG tube placement. The patient did have the mild gastritis and this may be feeding into her underlying anemia. Biopsies were taken to rule out Helicobacter pylori , daily proton pump inhibitor is advised. Current Visit: Yes (2) Malnutrition Status: Acute Assessment and plan: She does generally look malnourished. She did have some electrolyte abnormalities initially including a low potassium and an high chloride anion gap. Tube feeding is already been initiated, we are watching for refeeding phenomenon. 10/30/16--Patient is having mild diarrhea as result of her tube feeds that are running at 55 mL/h. we will continue to observe. The patient's potassium is slightly high, I am going to cut back on her IV fluid rate. 10/31/16--Observe with feedings, she can likely go to a jail setting in the near future. Current Visit: Yes (3) Altered mental status Status: Acute Assessment and plan: The patient's son states that she has been having these waxing and waning changes over the last 1 month, she has garbled speech and is not able to follow commands routinely. I think that a feeding tube is ultimately going to be required for medication hydration needs. We will go ahead and plan on placing this on Sunday. Will check B12 and folate in the interim due to the patient's elevated MCV. 10/30/16--the patient's mental status appears slightly better. She is actually making statements although she does not answer questions or seem to be cognitively aware of much going on around her. It is unclear whether this is due to dementia, systemic illness, delirium, recent stroke, expressive aphasia or what is occurring at this point causing this mental status change. 10/31/16--PEG tube placed without difficulty. We are watching the patient. Current Visit: Yes Gastroenterology - PN: Subj Interval history: No new complaints, the patient seems more interactive than yesterday. Exam (Progress Note) - Constitutional Vitals: Period Temp Pulse Resp BP Sys/Santos Pulse Ox Last 24 Hr 98.2 F-99.3 F 90-108 14-20 103-142/56-068 94-99 General appearance: no acute distress - Eye Eye exam: Present: EOMI - Respiratory Respiratory exam: Present: clear to auscultation bilaterally - Cardiovascular Cardiovascular exam: Present: regular rate and rhythm - GI/Abdominal GI/Abdominal exam: Present: normal bowel sounds, soft. Absent: distended, tenderness, rebound - Neurological Exam Neurological exam: Present: altered (Somnolent, waxing and waning mental status. ) - Psychiatric Psychiatric exam: Present: flat affect - Skin Skin exam: Present: warm Results - Labs CBC & BMP: 10/30/16 05:46 10/30/16 05:46
--- NOTE | 2016-10-31 09:20 | Anesthesia Post-Op ---
Anesthesia Post OP - Post Ansesthetic Evaluation Patient seen in post op: Yes Resp: within normal limits CV: within normal limits Mental: within normal limits Temp: within normal limits [id number]: within normal limits Nausea and Vomiting: within normal limits Pain: within normal limits
[2016-10-31] MEDS: LEVOFLOXACIN 500 MG TABLET PO SCH (09:39)
[2016-10-31] MEDS: QUEtiapine 25 MG TABLET PO SCH (09:39)
[2016-10-31] MEDS: ESCITALOPRAM 10 MG TABLET PO SCH (09:39)
[2016-10-31] MEDS: MEMANTINE 5 MG TABLET PO SCH ×2 (09:39→20:51)
[2016-10-31] MEDS: ARIPiprazole 10 MG TABLET PO SCH (09:39)
[2016-10-31] MEDS: DESITIN 4OZ/NYSTATIN 15 GRAM MIXTURE PASTE TOP SCH ×2 (10:53→20:51)
--- NOTE | 2016-10-31 14:09 | Hospitalist Progress Note ---
Assessment and Plan (1) Bipolar disorder with psychotic features Status: Acute Assessment and plan: Impression: 1. Bipolar disorder 2. Alzheimer's disease 3. Swallowing problems with malnutrition 4. Urinary tract infection Plan: PEG tube has been placed. We should be able to begin tube feedings in the morning, and discharged to the [facility] soon. This note was completed using [employer] voice recognition software. There may be planisher errors as a result. Current Visit: Yes Hospitalist: Subjective Interval history: Follow-up bipolar psychosis, possible Alzheimer's disease, urinary tract infection, and swallowing problems. The patient is undergone successful placement of a PEG tube earlier today. She is awake and conversant. She knows that she is in the hospital. She reports no complaints. Exam - Constitutional Vitals: Period Temp Pulse Resp BP Sys/Santos Pulse Ox Last 24 Hr 97.6 F-99.3 F 75-108 11-20 110-142/56-068 95-100 Vital signs are noted above. Heart is regular with no murmur or gallop. Lungs are clear with no rales or wheezes. Abdomen is soft without any mass or tenderness. PEG tube is in place. She is awake and conversant. Results - Labs CBC & BMP: 10/30/16 05:46 10/30/16 05:46
--- NOTE | 2016-10-31 14:35 | Neurology Progress Note ---
Neurology - PN : Subjective Interval history: Patient seems to be doing about the same. She had a good bit of masklike facies. She has rigidity on all 4 extremities. I am concerned about possible neuroleptic induced extrapyramidal syndrome Exam (Progress Note) - Constitutional Vitals: Period Temp Pulse Resp BP Sys/Santos Pulse Ox Last 24 Hr 97.6 F-99.3 F 75-108 11-20 110-142/56-068 95-100 Exam: GENERAL: Patient is in no acute distress. NECK: Neck is supple. There is no JVD. No carotid bruits present. No thyroid masses. CVS: First and second heart sounds are normal. There is no S3 present. Regular rate and rhythm. RESPIRATORY: Lungs are clear to auscultation without any rales or rhonchi. ABDOMEN: Soft and non-tender. Bowel sounds are present. There is no hepatosplenomegaly. EXT: There is no palpable edema. Peripheral pulses are present. Skin: No rashes Central Nervous system: General: awake but disoriented Speech: Non-fluent Comprehension: Impaired Facial expressions: Normal Cranial Nerves: Pupils are equally reactive to light. Doll's head eye movements are positive. No facial asymmetry seen Motor: Bilateral rigidity and bradykinesia Strength cannot be assessed Sensory: Cannot be assessed Reflexes: 1+ and symmetrical Cerebellar function: Cannot be assessed Toes: Equivocal Gait: Cannot be assessed Results - Labs CBC & BMP: 10/30/16 05:46 10/30/16 05:46 Assessment and Plan (1) Delirium Status: Acute Assessment and plan: This is likely due to UTI and infection No evidence of a stroke or seizures. Current Visit: Yes (2) Alzheimer's dementia with behavioral disturbance Status: Acute Assessment and plan: continue Namenda at the same Current Visit: Yes (3) Extrapyramidal syndrome Status: Acute Assessment and plan: Add Sinemet 25/100 mg 3 times a day Current Visit: Yes
[2016-10-31] MEDS: CARBIDOPA/LEVODOPA 25-100 MG TABLET PO SCH ×2 (14:40→20:51)
[2016-10-31] MEDS: PANTOPRAZOLE 40 MG VIAL IV SCH (14:53)
[2016-10-31] MEDS: QUEtiapine 100 MG TABLET PO SCH (20:51)
[2016-10-31] MEDS: clonazePAM 0.5 MG TABLET PO PRN (20:51)
[2016-11-01] MEDS: INSULIN REGULAR 100 UNIT/ML SUBCUT SCH ×5 (00:44→23:24)
[2016-11-01] MEDS: POTASSIUM CHLORIDE INJ 40 MEQ in SODIUM CHLORIDE 0.45% 1,000 ML IV SCH (03:50)
[2016-11-01 06:36] LABS: Calcium 8.3 MG/DL (8.5-10.1); Osmolality,Calculated 275.7 MOS/KG (273-304); Potassium 4.3 MMOL/L (3.5-5.1)
--- NOTE | 2016-11-01 08:06 | Hospitalist Progress Note ---
Assessment and Plan (1) Bipolar disorder with psychotic features Status: Acute Assessment and plan: Impression: 1. Bipolar disorder 2. Alzheimer's disease 3. Swallowing problems with malnutrition 4. Urinary tract infection Plan: PEG tube has been placed. Begin tube feedings, and discharged to the long term once accepted. This note was completed using [employer] voice recognition software. There may be falsework builder errors as a result. Current Visit: Yes Hospitalist: Subjective Interval history: Follow-up bipolar psychosis and possible dementia. The patient remains stable following PEG tube placement. We will begin tube feedings today. She is ready for discharge to the long term once arrangements have been made. Exam - Constitutional Vitals: Period Temp Pulse Resp BP Sys/Santos Pulse Ox Last 24 Hr 97 F-98.3 F 75-105 11-20 107-134/58-87 97-100 Vital signs are noted above. Heart is regular with distant tones and no murmur or gallop. Lungs are clear with no rales or wheezes. Abdomen is soft and nontender. She is awake and conversant. Results - Labs CBC & BMP: 10/30/16 05:46 11/01/16 05:08
[2016-11-01] MEDS: MEMANTINE 5 MG TABLET PO SCH ×2 (09:29→21:09)
[2016-11-01] MEDS: LEVOFLOXACIN 500 MG TABLET PO SCH (09:29)
[2016-11-01] MEDS: ESCITALOPRAM 10 MG TABLET PO SCH (09:30)
[2016-11-01] MEDS: clonazePAM 0.5 MG TABLET PO PRN ×2 (09:30→21:09)
[2016-11-01] MEDS: CARBIDOPA/LEVODOPA 25-100 MG TABLET PO SCH ×3 (09:30→21:09)
[2016-11-01] MEDS: ARIPiprazole 10 MG TABLET PO SCH (09:31)
[2016-11-01] MEDS: QUEtiapine 25 MG TABLET PO SCH (09:40)
[2016-11-01] MEDS: DESITIN 4OZ/NYSTATIN 15 GRAM MIXTURE PASTE TOP SCH ×2 (10:00→21:10)
--- NOTE | 2016-11-01 11:25 | Pathology Report from [facility] ---
[facility] ACCESSION # : [id number] PATIENT NAME : Tosha Pichardo ORDERING DR : Jose Pastor MD CLINICAL HX: Anemia POST-OP DX: Same SPECIMEN INFO: GHADA GROSS DESCRIPTION: Received in formalin labeled TOSHA PICHARDO is a 0.8 x 0.4 cm aggregate of pink king tissue submitted in one cassette. DIAGNOSIS FOR TOSHA PICHARDO: GHADA BIOPSIES: Hyperplastic gastric mucosa, regenerative mucosal changes, intestinal metaplasia, chronic inflammation. Small fragment of squamous esophageal mucosa with acute and chronic inflammation. H. pylori not seen on special stain. COLLECTED DATE: 10/31/2016 [facility] REPORT DATE: 11/01/2016 ELECTRONICALLY SIGNED BY: Renato Herman M.D. 11/01/2016 - 9:52:00 [facility] CENTERHeidi
--- NOTE | 2016-11-01 12:44 | Neurology Progress Note ---
Neurology - PN : Subjective Interval history: Patient seems to be doing about the same. No new changes reported. Still quite confused and debilitated. Small dose of Sinemet is probably helping some Exam (Progress Note) - Constitutional Vitals: Period Temp Pulse Resp BP Sys/Santos Pulse Ox Last 24 Hr 97 F-98.5 F 82-105 16-20 107-119/54-63 97-98 Exam: GENERAL: Patient is in no acute distress. NECK: Neck is supple. There is no JVD. No carotid bruits present. No thyroid masses. CVS: First and second heart sounds are normal. There is no S3 present. Regular rate and rhythm. RESPIRATORY: Lungs are clear to auscultation without any rales or rhonchi. ABDOMEN: Soft and non-tender. Bowel sounds are present. There is no hepatosplenomegaly. EXT: There is no palpable edema. Peripheral pulses are present. Skin: No rashes Central Nervous system: General: awake but disoriented Speech: Non-fluent Comprehension: Impaired Facial expressions: Normal Cranial Nerves: Pupils are equally reactive to light. Doll's head eye movements are positive. No facial asymmetry seen Motor: Bilateral rigidity and bradykinesia Strength cannot be assessed Sensory: Cannot be assessed Reflexes: 1+ and symmetrical Cerebellar function: Cannot be assessed Toes: Equivocal Gait: Cannot be assessed Results - Labs CBC & BMP: 10/30/16 05:46 11/01/16 05:08 Assessment and Plan (1) Delirium Status: Acute Assessment and plan: This is likely due to UTI and infection No evidence of a stroke or seizures. Current Visit: Yes (2) Alzheimer's dementia with behavioral disturbance Status: Acute Assessment and plan: continue Namenda at the same dose Current Visit: Yes (3) Extrapyramidal syndrome Status: Acute Assessment and plan: Continue Sinemet 25/100 mg 3 times a day Sign off please call as needed Current Visit: Yes
--- NOTE | 2016-11-01 14:02 | Gastrointestinal Progress Note ---
Assessment and Plan (1) Anemia Status: Acute Assessment and plan: Patient does have a decreased hematocrit to 25.8% with a hemoglobin of 8.9 and MCV of 98.9. Will check for B12 and folate deficiency as the former can certainly produce dementia. She has responded well to the feedings when she can get these. I do not believe with her current mental status whether she would be able to tolerate pured diet at all. The patient's son states that she really has not been eating much at all over the last 2 days and her symptoms have been going on for the last 1 month. In an effort to get the nasal feeding tube out I agree the PEG tube could certainly be of benefit to this patient. 10/30/16--B12 and folate are completely normal. The patient has been set up for PEG tube placement tomorrow. I do not feel that with her current mental status that she would have any significant intake. We will be performing upper endoscopy tomorrow both to see a cause for the anemia and to place the PEG tube as mentioned above. 10/31/16--Mild pangastritis, diffuse, biopsied otherwise normal-appearing without hiatal hernia or duodenitis or esophagitis. Successful PEG tube placement. The patient did have the mild gastritis and this may be feeding into her underlying anemia. Biopsies were taken to rule out Helicobacter pylori , daily proton pump inhibitor is advised. 11/01/16--the patient was not actively bleeding yesterday, successful PEG tube as mentioned above with pangastritis, no Helicobacter pylori on pathology. She is doing well with has PEG tube in place which is being tolerated well sign off the case at this time. Daily PPIs are suggested. Current Visit: Yes (2) Malnutrition Status: Acute Assessment and plan: She does generally look malnourished. She did have some electrolyte abnormalities initially including a low potassium and an high chloride anion gap. Tube feeding is already been initiated, we are watching for refeeding phenomenon. 10/30/16--Patient is having mild diarrhea as result of her tube feeds that are running at 55 mL/h. we will continue to observe. The patient's potassium is slightly high, I am going to cut back on her IV fluid rate. 10/31/16--Observe with feedings, she can likely go to a [facility] setting in the near future. 10/31/16--stable with feedings, doing well otherwise, will sign off at this time. Current Visit: Yes (3) Altered mental status Status: Acute Assessment and plan: The patient's son states that she has been having these waxing and waning changes over the last 1 month, she has garbled speech and is not able to follow commands routinely. I think that a feeding tube is ultimately going to be required for medication hydration needs. We will go ahead and plan on placing this on Sunday. Will check B12 and folate in the interim due to the patient's elevated MCV. 10/30/16--the patient's mental status appears slightly better. She is actually making statements although she does not answer questions or seem to be cognitively aware of much going on around her. It is unclear whether this is due to dementia, systemic illness, delirium, recent stroke, expressive aphasia or what is occurring at this point causing this mental status change. 10/31/16--PEG tube placed without difficulty. We are watching the patient. 11/01/16--PEG tube is in place with binder, continue feedings.. Current Visit: Yes Gastroenterology - PN: Subj Interval history: Tosha has no residuals, she appears to be tolerating her tube feeds well. PEG tube looks fine and spends well. Exam (Progress Note) - Constitutional Vitals: Period Temp Pulse Resp BP Sys/Santos Pulse Ox Last 24 Hr 97 F-98.5 F 82-105 16-20 96-119/54-63 97-98 General appearance: no acute distress Exam: The patient has some echolalia - Eye Eye exam: Present: EOMI - Respiratory Respiratory exam: Present: clear to auscultation bilaterally. Absent: rhonchi, wheezes - Cardiovascular Cardiovascular exam: Present: regular rate and rhythm - GI/Abdominal GI/Abdominal exam: Present: normal bowel sounds, distended, soft, other (Tube in place in the left upper quadrant, spends well, no drainage.) - Extremities Exam Extremities exam: Present: edema (Especially the dorsum of the hands bilaterally ) - Neurological Exam Neurological exam: Present: alert, altered (This patient is confused and talks with garbled speech.) - Psychiatric Psychiatric exam: Present: flat affect - Skin Skin exam: Present: warm Results - Labs CBC & BMP: 10/30/16 05:46 11/01/16 05:08
[2016-11-01] MEDS: PANTOPRAZOLE 40 MG VIAL IV SCH (15:11)
[2016-11-01] MEDS: QUEtiapine 100 MG TABLET PO SCH (21:09)
[2016-11-02] MEDS: POTASSIUM CHLORIDE INJ 40 MEQ in SODIUM CHLORIDE 0.45% 1,000 ML IV SCH (00:37)
[2016-11-02] MEDS: INSULIN REGULAR 100 UNIT/ML SUBCUT SCH ×3 (00:37→12:17)
[2016-11-02 05:17] LABS: Phosphorous 3.5 MG/DL (2.5-4.9); Prealbumin 12.5 MG/DL (20-40)
--- NOTE | 2016-11-02 07:47 | Hospitalist Progress Note ---
Assessment and Plan (1) Bipolar disorder with psychotic features Status: Acute Assessment and plan: Impression: 1. Bipolar disorder 2. Alzheimer's disease 3. Swallowing problems with malnutrition 4. Urinary tract infection Plan: Continue tube feedings. Discharge to the care home when she is accepted. This note was completed using [employer] voice recognition software. There may be inspector outside production errors as a result. Current Visit: Yes Hospitalist: Subjective Interval history: Follow-up bipolar disorder, possible Alzheimer's disease, swallowing difficulty The patient reports no new complaints. She says that she does not like being bothered by the nursing staff. She is tolerating tube feedings well. We are ready for her to transfer to the care home once she has been accepted. Exam - Constitutional Vitals: Period Temp Pulse Resp BP Sys/Santos Pulse Ox Last 24 Hr 97.4 F-98.7 F 91-99 16-20 93-108/41-65 95-100 Vital signs are noted above. Heart is regular with no murmur or gallop. Lungs are clear with no rales or wheezes. Abdomen is soft with good bowel sounds. She is awake and conversant. She knows where she is. Results - Labs CBC & BMP: 10/30/16 05:46 11/01/16 05:08
--- NOTE | 2016-11-02 08:30 | Discharge Summary ---
Hospital Course - Hospital Course Hospital Course: Discharge diagnosis: Bipolar disorder Possible Alzheimer's disease Urinary tract infection with sepsis/septic shock Malnutrition Swallowing disorder The patient presented to the hospital with hypotension and dehydration. While in the hospital, she was given IV antibiotics for what appeared to be a urinary tract infection. She did not tolerate oral feedings, and was not able to maintain an adequate calorie intake. Family agreed with PEG tube, and this was placed on 10/31. She is now ready to go back to the shelter. Neurology also saw her, and revised her medications. She is not tolerating tube feedings , and is ready for transfer. Medication reconciliation has been performed. Diet will be tube feeding. Activity as tolerated. Follow-up with local physician. Diagnosis - Discharge Diagnosis (1) Bipolar disorder with psychotic features Status: Acute Discharge Plan - Discharge Data Disposition: Disch/Xfer to [facility] Condition at Discharge: Stable Discharge Diet: other (tube feeding) Activity: as per physical therapy Hygiene: no restrictions - Discharge Medications New Memantine [Namenda] 5 mg PO BID tablet Continue Menthol/Zinc Oxide Oint [Calmoseptine Oint] 1 applic TOP QID PRN PRN Reason: Rash dimenhyDRINATE [Dramamine Chew Tab] 50 mg PO Q4H PRN PRN Reason: Nausea/Vomiting Ibuprofen 800 mg PO Q8H PRN PRN Reason: Pain clonazePAM [Clonazepam] 0.5 mg PO BID PRN PRN Reason: Anxiety QUEtiapine [SEROquel] 100 mg PO BEDTIME QUEtiapine [SEROquel] 25 mg PO 0900 ARIPiprazole [Aripiprazole] 20 mg PO 0900 Methocarbamol Tab [Robaxin Tab] 500 mg PO TID Magnesium Oxide 500 mg PO BID@0900,1700 Lisinopril/Hctz 20-12.5 [Prinzide 20-12.5] 1 tablet PO 0900 Magnesium Hydroxide [Milk of Magnesia] 30 ml PO Q4H PRN PRN Reason: Constipation Escitalopram Oxalate 10 mg PO 0900 Oxybutynin Xl [Ditropan Xl] 5 mg PO BID@0900,1700 Multivitamin (Centrum) [Centrum Tab] 1 tablet PO 0900 Discontinued rifAMPin [Rifampin] 600 mg PO 0900 - Follow Up or Referral - Forms/Instructions Exam - Constitutional Vitals: Period Temp Pulse Resp BP Sys/Santos Pulse Ox Last 24 Hr 97.4 F-98.7 F 91-99 16-20 93-108/41-65 95-100 See note from earlier today Discharge Results Labs on day of discharge: Labs from last 24 hours 11/02/16 11/02/16 11/02/16 05:47 03:44 00:33 POC Glucose 151 H 174 H Phosphorus 3.5 Magnesium 2.0 Prealbumin 12.5 L 11/01/16 11/01/16 11/01/16 16:45 12:31 07:16 POC Glucose 151 H 115 H 127 H Phosphorus Magnesium Prealbumin 10/31/16 19:21 POC Glucose 99 Phosphorus Magnesium Prealbumin DS: Provider Date of admission: 10/26/16 13:43 Primary care physician: . No PCP Attending physician on admission: Sarah Zuniga MD Consults: 10/26/16 16:38 Consult to Dietitian [CONS] Routine Reason for Dietitian: Dietary Consult Consult Comment: admission assessment 10/27/16 12:04 Consult to Physician [CONS] Routine Comment: ams, ?seizures Consulting Provider: Manas Ambrose When should Consulting Provider be notified: Now Person Notified: Dr Ambrose Date Notified: 10/27/16 Time Notified: 12:30 Consult Notification Comment: Will see patient on sunday10/28/16 13:45 Consult to Dietitian [CONS] Routine Reason for Dietitian: TF-Initiate/Manage 10/28/16 13:56 Consult to Pharmacy [CONS] Routine Reason for Pharmacy Consult: Dose/Manage Vancomycin 10/31/16 09:14 Consult to Dietitian [CONS] Routine Reason for Dietitian: TF-Initiate/Manage Consult Comment: Tube feeding recommendations Discharging clinician: Harvinder Roberts MD Expected date of discharge: 11/02/16
[2016-11-02] MEDS: QUEtiapine 25 MG TABLET PO SCH (09:36)
[2016-11-02] MEDS: ESCITALOPRAM 10 MG TABLET PO SCH (09:36)
[2016-11-02] MEDS: CARBIDOPA/LEVODOPA 25-100 MG TABLET PO SCH (09:36)
[2016-11-02] MEDS: MEMANTINE 5 MG TABLET PO SCH (09:36)
[2016-11-02] MEDS: DESITIN 4OZ/NYSTATIN 15 GRAM MIXTURE PASTE TOP SCH (09:36)
[2016-11-02] MEDS: ARIPiprazole 10 MG TABLET PO SCH (09:37)
[2016-11-07 15:27] VITALS: BP 138/84
== END 2016-11-02 15:44 | DRG 871 ==
LOC: N.ED 11:35 → SUATTDRO 13:43 → N.EDINP 13:43 → N.ICU 15:27 → N.5E 10-28 16:26
PROVIDERS: ADMIT Internal Medicine; ATTEND Internal Medicine Geriatric Medicine
PROC: EGDWPEG (ICD-10-PCS; 2016-10-31 12:05)